=== PATIENT | female | born 1980 ===

== ENCOUNTER 2017-03-12 19:00 | Emergency (ER) | payer OTHER ==
[2017-03-12 19:10] VITALS: BMI 30.1
[2017-03-12 19:13] VITALS: BP 111/76; PULSE 84; TEMP 97.8
--- NOTE | 2017-03-12 19:21 | ED PDOC ---
Arrival/HPI - General Chief Complaint: Lower Extremity Problem/Injury Time Seen by Provider: 03/12/17 19:15 Historian: Patient - History of Present Illness Narrative History of Present Illness (Text): 03/12/17 19:18 37YO female present with complaint of right knee pain x 2months. States she has been taking Aleve without relieve. Did not see any Doctor. Denies any trauma. Denies calf pain, SOB, chest pain, OCP use, recent travel, diaphoresis, any other complaint. Past Medical History - Provider Review Nursing Documentation Reviewed: Yes - Infectious Disease Hx of Infectious Diseases: None - Genitourinary/Gynecological Hx Genitourinary Disorders: Yes Other/Comment: PMDD- hyestrectomy performed - Psychiatric Hx Substance Use: No - Surgical History Hx Hysterectomy: Yes (oct 2016) Other/Comment: PMDD - Anesthesia Hx Anesthesia: Yes Hx Anesthesia Reactions: No Family/Social History - Physician Review Nursing Documentation Reviewed: Yes Family/Social History: Unknown Family HX Smoking Status: Never Smoked Hx Alcohol Use: No Hx Substance Use: No Allergies/Home Meds Allergies/Adverse Reactions: Allergies No Known Allergies Allergy (Verified 03/12/17 19:10) Review of Systems - Physician Review All systems were reviewed & negative as marked: Yes - Review of Systems Constitutional: Normal Eyes: Normal ENT: Normal Respiratory: Normal Cardiovascular: Normal Gastrointestinal: Normal Genitourinary Female: Normal Musculoskeletal: Arthralgias (Right knee) Skin: Normal Neurological: Normal Endocrine: Normal Hemo/Lymphatic: Normal Psychiatric: Normal Physical Exam Vital Signs Reviewed: Yes Vital Signs Temp Pulse Resp BP Pulse Ox 03/12/17 19:12 97.8 F 84 19 111/76 99 Temperature: Afebrile Blood Pressure: Normal Pulse: Regular Respiratory Rate: Normal Appearance: Positive for: Well-Appearing, Non-Toxic, Comfortable Pain Distress: None Mental Status: Positive for: Alert and Oriented X 3 - Systems Exam Head: Present: Atraumatic, Normocephalic Pupils: Present: PERRL Extroacular Muscles: Present: EOMI Conjunctiva: Present: Normal Mouth: Present: Moist Mucous Membranes Neck: Present: Normal Range of Motion Respiratory/Chest: Present: Clear to Auscultation, Good Air Exchange. No: Respiratory Distress, Accessory Muscle Use Cardiovascular: Present: Regular Rate and Rhythm, Normal S1, S2. No: Murmurs Abdomen: Present: Normal Bowel Sounds. No: Tenderness, Distention, Peritoneal Signs Back: Present: Normal Inspection Upper Extremity: Present: Normal Inspection. No: Cyanosis, Edema Lower Extremity: Present: NORMAL PULSES, Tenderness (Over posterior, medial and lateral right knee). No: Edema, CALF TENDERNESS, Cyanosis, Swelling, Erythema, Deformity Neurological: Present: GCS=15, CN II-XII Intact, Speech Normal Skin: Present: Warm, Dry, Normal Color. No: Rashes Psychiatric: Present: Alert, Oriented x 3, Normal Insight, Normal Concentration Medical Decision Making ED Course and Treatment: 03/12/17 19:55 Per US tech Doppler is negative for DVT Right knee xray - No acute finding Result was DW the patient. She was referred to ortho. TRT ED for any new or worsening symptoms - RAD Interpretation Radiology Orders: 03/12/17 19:17 KNEE W PATELLA RIGHT 3 VIEW [RAD] Stat 03/12/17 19:20 DUPLEX LOWER EXTRM VEIN RIGHT [US] Stat - Medication Orders Current Medication Orders: Discontinued Medications Ketorolac Tromethamine (Toradol) 60 mg IM STAT STA Stop: 03/12/17 19:18 Last Admin: 03/12/17 19:25 Dose: 60 mg Disposition/Present on Arrival - Present on Arrival Any Indicators Present on Arrival: No History of DVT/PE: No History of Uncontrolled Diabetes: No Urinary Catheter: No History of Decub. Ulcer: No History Surgical Site Infection Following: None - Disposition Have Diagnosis and Disposition been Completed?: Yes Diagnosis: Knee pain Disposition: HOME/ ROUTINE Disposition Time: 20:00 Patient Plan: Discharge Condition: STABLE Discharge Instructions (ExitCare): Knee Pain (ED) Additional Instructions: Follow up with your doctor Return to ED for any new or worsening symptoms Prescriptions: Naproxen [Naprosyn] 500 mg PO BID #20 tablet Referrals: Nathaly Nicolas MD [Staff Provider] - Follow up with primary
[2017-03-12 20:14] VITALS: RESP 18; O2SAT 98
--- NOTE | 2017-03-13 07:53 | RAD ---
PROCEDURE: Right Knee Radiographs. HISTORY: KNEE PAIN COMPARISON: None. FINDINGS: BONES: Normal. No fracture. JOINTS: Normal. No osteoarthritis. JOINT EFFUSION: None. OTHER FINDINGS: Mild lateral patellar orientation on the sunrise view IMPRESSION: No fracture dislocation. Lateral patellar orientation
--- NOTE | 2017-03-13 17:47 | US ---
PROCEDURE: Right lower extremity venous US HISTORY: Leg pain and swelling. Evaluate for DVT. PHYSICIAN(S): Sukhjinder Abdullahi M.D. TECHNIQUE: Duplex sonography and color-flow Doppler with graded compression were used to evaluate the deep venous system of the right lower extremity. FINDINGS: The visualized deep venous system of the right lower extremity is sonographically normal and compressible. Normal waveforms and augmentation are seen. There is no sonographic evidence for deep venous thrombosis in the visualized segments of the right lower extremity. IMPRESSION: 1. No sonographic evidence for deep venous thrombosis in the visualized segments of the right lower extremity.
== END 2017-03-12 20:13 | disposition home or self-care (01) ==
LOC: ED 19:00 → MERGE 19:00 → ED 20:13
DX: M25.561 Pain in right knee (principal)
CPT/HCPCS: 73562; 93971; 96372; 99283; J1885

== ENCOUNTER 2017-03-23 12:38 | Emergency (ER) | payer OTHER ==
[2017-03-23 12:39] VITALS: BMI 30.1
[2017-03-23 13:01] VITALS: RESP 18
[2017-03-23] MEDS ORDERED: Aspirin 325 mg EC Tablets PO STA (13:10)
[2017-03-23 13:24] LABS: ADD MANUAL DIFF? NO
--- NOTE | 2017-03-23 13:28 | ED PDOC ---
Arrival/HPI - General Chief Complaint: Lower Extremity Problem/Injury Time Seen by Provider: 03/23/17 12:51 - History of Present Illness Narrative History of Present Illness (Text): 03/23/17 13:20 Natalia Corrales is a 37 year old female whose past medical history includes a Hysterectomy, who presents to the emergency department with several weeks, possibly several months of bilateral lower extremity swelling and pain (L>R). Patient was recently in the Emergency department 10 days ago with negative Dopplers. Patient also reports 3 days of steady chest pain which she describes as sharp, stabbing, and sometimes achy along with shortness of breath. Patient also notes two days of generalized body numbness specifically of the bilateral LE and UE. Patient denies any weakness, no difficulties with ADLS, no dizziness , no nausea/vomiting/diarrhea, lightheadedness no trauma. Patient is a non- smoker, non-drug user, but an occasional drinker. PMD: None reported. Time/Duration: > week Symptom Onset: Gradual Symptom Course: Unchanged Activities at Onset: Light Context: Home Associated Symptoms (Text): 03/23/17 13:49 Patient has several different complaints. She complains of a several week to several month history of bilateral lower extremity swelling and pain, left greater than right. She had negative Doppler in the emergency Department 10 days ago. She also complains of approximately 3 days' history of steady chest pain and shortness of breath. She has a 2 day history of numbness of her bilateral upper and bilateral lower extremities, left worse than right. No weakness. No head trauma. No dizziness. No lightheadedness. No abdominal pain nausea or vomiting. She does not appear to be in any distress. Past Medical History - Provider Review Nursing Documentation Reviewed: Yes - Infectious Disease Hx of Infectious Diseases: None - Genitourinary/Gynecological Hx Genitourinary Disorders: Yes Other/Comment: PMDD- hyestrectomy performed - Psychiatric Hx Substance Use: No - Surgical History Hx Hysterectomy: Yes (oct 2016) Other/Comment: PMDD - Anesthesia Hx Anesthesia: Yes Hx Anesthesia Reactions: No Family/Social History - Physician Review Nursing Documentation Reviewed: Yes Family/Social History: No Known Family HX Smoking Status: Never Smoked Hx Alcohol Use: No Hx Substance Use: No Allergies/Home Meds Allergies/Adverse Reactions: Allergies No Known Allergies Allergy (Verified 03/23/17 12:56) Home Medications: Home Meds Medication Instructions Recorded Confirmed No Known Home Med 03/23/17 03/23/17 Review of Systems - Physician Review All systems were reviewed & negative as marked: Yes - Review of Systems Constitutional: Normal. absent: Fatigue, Fevers Respiratory: SOB. absent: Cough, Sputum Cardiovascular: Chest Pain. absent: Palpitations, Syncope Gastrointestinal: Normal. absent: Abdominal Pain, Diarrhea, Nausea, Vomiting Genitourinary Female: Normal. absent: Dysuria, Frequency, Hematuria Musculoskeletal: Other (Bilateral Extremity Swellling and Pain (L>R); LLE/LUE numbness) Neurological: absent: Headache, Dizziness, Focal Weakness, Gait Changes, Speech Changes, Facial Droop, Disequilibrium, Seizure Physical Exam Vital Signs Reviewed: Yes Vital Signs Temp Pulse Resp BP Pulse Ox 03/23/17 14:44 98.6 F 78 18 132/78 99 03/23/17 13:00 98.7 F 87 18 113/80 98 Temperature: Afebrile Blood Pressure: Normal Pulse: Regular Respiratory Rate: Normal Appearance: Positive for: Well-Appearing, Non-Toxic, Comfortable Pain Distress: None Mental Status: Positive for: Alert and Oriented X 3 - Systems Exam Head: Present: Atraumatic, Normocephalic Pupils: Present: PERRL Extroacular Muscles: Present: EOMI Conjunctiva: Present: Normal Ears: Present: NORMAL TM, Normal Canal. No: Erythema Mouth: Present: Moist Mucous Membranes Pharnyx: No: ERYTHEMA, EXUDATE, TONSILS ENLARGED Neck: Present: Normal Range of Motion. No: MIDLINE TENDERNESS, Paraspinal Tenderness Respiratory/Chest: Present: Clear to Auscultation, Good Air Exchange. No: Respiratory Distress, Accessory Muscle Use, Tender to Palpation Cardiovascular: Present: Regular Rate and Rhythm, Normal S1, S2. No: Murmurs Abdomen: Present: Normal Bowel Sounds. No: Tenderness, Distention, Peritoneal Signs, Rebound, Guarding Back: Present: Normal Inspection Upper Extremity: Present: Normal Inspection. No: Cyanosis, Edema Lower Extremity: Present: Normal Inspection, Other (There is no lower extremity edema). No: Edema Neurological: Present: GCS=15, CN II-XII Intact, Speech Normal, Motor Func Grossly Intact, Normal Sensory Function, Normal Cerebellar Funct, Norm Deep Tendon Reflexes, Gait Normal, Memory Normal Skin: Present: Warm, Dry, Normal Color. No: Rashes Psychiatric: Present: Alert, Oriented x 3, Normal Insight, Normal Concentration Medical Decision Making ED Course and Treatment: 03/23/17 13:20 Impression: 37 year old female with bilateral LE swelling and pain (L>R). Patient also reports chest pain and shortness of breath. Plan: -- Head CT -- Chest X-ray -- EKG -- Labs, Urinalysis, cardiac enzymes -- Aspirin -- Reassess and disposition Prior Visits: Notes and results from previous visits were reviewed. Patient was last seen in the emergency department on 03/12/17 for right knee pain. Progress Notes: 03/23/17 13:51 EKG shows normal sinus rhythm rate approximately [address] or T-wave changes 03/23/17 14:33 Procedure: Head CT Dictator: Sukhjinder Hearn MD Impression: No intracranial mass, hemorrhage or evidence of acute infarct. Mild chronic paranasal sinusitis. - Lab Interpretations Lab Results: 03/23/17 13:23 03/23/17 13:22 Lab Results 03/23/17 13:45: Urine Opiates Screen Negative, Urine Methadone Screen Negative, Ur Barbiturates Screen Negative, Ur Phencyclidine Scrn Negative, Ur Amphetamines Screen Negative, U Benzodiazepines Scrn Negative, U Oth Cocaine Metabols Negative, U Cannabinoids Screen Negative 03/23/17 13:45: Urine Color Yellow, Urine Appearance Clear, Urine pH 7.0, Ur Specific [place] 1.020, Urine Protein Negative, Urine Glucose (UA) Negative, Urine Ketones Negative, Urine Blood Negative, Urine Nitrate Negative, Urine Bilirubin Negative, Urine Urobilinogen 0.2, Ur Leukocyte Esterase Negative 03/23/17 13:23: PT 10.7, INR 0.99, APTT 26.3, D-Dimer, Quantitative 0.46 03/23/17 13:23: WBC 6.5, RBC 3.95, Hgb 11.5 L, Hct 33.4 L, MCV 84.6, MCH 29.1, MCHC 34.4, RDW 13.6, Plt Count 285, MPV 9.7, Gran % 50.2, Lymph % (Auto) 41.5 H , [place] % (Auto) 5.3, Eos % (Auto) 2.5, Baso % (Auto) 0.5, Gran # 3.25, Lymph # 2.7, [place] # 0.3, Eos # 0.2, Baso # 0.03 03/23/17 13:22: Sodium 142, Potassium 3.6, Chloride 106, Carbon Dioxide 28, Anion Gap 12, BUN 12, Creatinine 0.5, Est GFR ( Amer) > 60, Est GFR (Non- Af Amer) > 60, Random Glucose 84, Calcium 9.2, Total Bilirubin 0.4, AST 31, ALT 50, Alkaline Phosphatase 59, Lactate Dehydrogenase 488, Total Creatine Kinase 74 , Troponin I < 0.01, NT-Pro-B Natriuret Pep 136, Total Protein 7.1, Albumin 4.0 , Globulin 3.1, Albumin/Globulin Ratio 1.3 I have reviewed the lab results: Yes - RAD Interpretation Narrative RAD Interpretations (Text): 03/23/17 14:33 Procedure: Head CT Dictator: Sukhjinder Hearn MD FINDINGS: HEMORRHAGE: No intracranial hemorrhage. BRAIN: No mass effect or edema. No atrophy or chronic microvascular ischemic changes. VENTRICLES: Unremarkable. No hydrocephalus. CALVARIUM: Unremarkable. PARANASAL SINUSES: Mild chronic ethmoid and right maxillary sinusitis. MASTOID AIR CELLS: Unremarkable as visualized. No inflammatory changes. OTHER FINDINGS: None. Impression: No intracranial mass, hemorrhage or evidence of acute infarct. Mild chronic paranasal sinusitis. Radiology Orders: 03/23/17 13:10 CHEST TWO VIEWS (PA/LAT) [RAD] Stat 03/23/17 13:11 HEAD W/O CONTRAST [CT] Stat Chest 2 view shows no infiltrate effusion cardiomegaly or pneumothorax Counselor Supervisor: ED Physician - Medication Orders Current Medication Orders: Discontinued Medications Aspirin (Ecotrin) 325 mg PO STAT STA Stop: 03/23/17 13:11 Last Admin: 03/23/17 13:25 Dose: 325 mg - Juaniibe Statement The provider has reviewed the documentation as recorded by the Naresh Mcelroy Provider Attestation: All medical record entries made by the Naresh were at my direction and personally dictated by me. I have reviewed the chart and agree that the record accurately reflects my personal performance of the history, physical exam, medical decision making, and the department course for this patient. I have also personally directed, reviewed, and agree with the discharge instructions and disposition. Disposition/Present on Arrival - Present on Arrival Any Indicators Present on Arrival: No History of DVT/PE: No History of Uncontrolled Diabetes: No Urinary Catheter: No History of Decub. Ulcer: No History Surgical Site Infection Following: None - Disposition Have Diagnosis and Disposition been Completed?: Yes Diagnosis: Chest pain, Dyspnea, Numbness, Edema Disposition: HOME/ ROUTINE Disposition Time: 14:35 Patient Plan: Discharge Condition: GOOD Discharge Instructions (ExitCare): Chest Pain (ED), Paresthesia (ED), Dyspnea ( ED) Referrals: Tiffany Chavez, [Primary Care Provider] - Follow up with primary [facility] [place] - Follow up with primary
[2017-03-23 13:29] LABS: BASO # 0.03 K/mm3 (0.0-2.0); BASO % 0.5 % (0.0-3.0); EOS # 0.2 (0.0-0.7); EOS % 2.5 % (1.5-5.0); GRAN # 3.25 (1.4-6.5); GRAN % 50.2 % (50.0-68.0); HEMATOCRIT 33.4 % (36.0-48.0); LYMPH # 2.7 (1.2-3.4); LYMPH % 41.5 % (22.0-35.0); MEAN CELL VOLUME 84.6 fL (80.0-105.0); MEAN CORPUSCULAR HEMOGLOBIN 29.1 pg (25.0-35.0); MEAN CORPUSCULAR HGB CONC 34.4 g/dl (31.0-37.0); MEAN PLATELET VOLUME 9.7 fl (7.0-11.0); MONO # 0.3 (0.1-0.6); MONO % 5.3 % (1.0-6.0); PLATELET COUNT 285 10^3/uL (120.0-450.0); RED CELL DISTRIBUTION WIDTH 13.6 % (11.5-14.5); WHITE BLOOD COUNT 6.5 10^3/ul (4.5-11.0)
[2017-03-23 13:42] LABS: INR 0.99 (0.93-1.08); PARTIAL THROMBOPLASTIN TIME 26.3 Seconds (23.7-30.8)
[2017-03-23 13:43] LABS: D DIMER 0.46 mg/L FEU (0-0.50)
[2017-03-23 13:50] LABS: ALB/GLOB RATIO 1.3 (1.1-1.8); ALKALINE PHOSPHATASE 59 U/L (38-133); ALT/SGPT 50 U/L (7-56); AST/SGOT 31 U/L (15-39); BILIRUBIN,TOTAL 0.4 mg/dL (0.2-1.3); BLOOD UREA NITROGEN 12 mg/dL (7-21); CALCIUM 9.2 mg/dL (8.4-10.5); CARBON DIOXIDE 28 mmol/L (21-33); CHLORIDE 106 mmol/L (98-107); GFR AFRICAN-AMERICAN > 60; GLUCOSE,RANDOM 84 mg/dL (70-110); POTASSIUM 3.6 mmol/L (3.6-5.0); SODIUM 142 mmol/L (132-148); TOTAL PROTEIN 7.1 g/dL (5.8-8.3)
[2017-03-23 13:57] LABS: URINE BILIRUBIN NEGATIVE (NEGATIVE); URINE BLOOD NEGATIVE (NEGATIVE); URINE GLUCOSE (UA) NEGATIVE (NEGATIVE); URINE KETONE NEGATIVE (NEGATIVE); URINE LEUKOCYTE ESTERASE NEGATIVE Leu/uL (NEGATIVE); URINE PROTEIN NEGATIVE mg/dL (<30 mg/dL); URINE UROBILINOGEN 0.2 E.U./dL (<1 E.U./dL)
[2017-03-23 14:01] LABS: URINE APPEARANCE CLEAR (CLEAR); URINE COLOR YELLOW (YELLOW)
[2017-03-23 14:02] LABS: TROPONIN I < 0.01 ng/mL
--- NOTE | 2017-03-23 14:31 | CT ---
PROCEDURE: CT HEAD WITHOUT CONTRAST. HISTORY: numbness COMPARISON: None available. TECHNIQUE: Axial computed tomography images were obtained through the head/brain without intravenous contrast. Radiation dose: Total exam DLP = 725.84 mGy-cm. This CT exam was performed using one or more of the following dose reduction techniques: Automated exposure control, adjustment of the mA and/or kV according to patient size, and/or use of iterative reconstruction technique. FINDINGS: HEMORRHAGE: No intracranial hemorrhage. BRAIN: No mass effect or edema. No atrophy or chronic microvascular ischemic changes. VENTRICLES: Unremarkable. No hydrocephalus. CALVARIUM: Unremarkable. PARANASAL SINUSES: Mild chronic ethmoid and right maxillary sinusitis. MASTOID AIR CELLS: Unremarkable as visualized. No inflammatory changes. OTHER FINDINGS: None. IMPRESSION: No intracranial mass, hemorrhage or evidence of acute infarct. Mild chronic paranasal sinusitis.
[2017-03-23 14:45] VITALS: BP 132/78; PULSE 78; TEMP 98.6; O2SAT 99
--- NOTE | 2017-03-23 16:16 | CARD ---
APPROVED REPORT EKG Measurement Heart [id number] <Conclusion> Normal sinus rhythm Possible Left atrial enlargement Borderline ECG
--- NOTE | 2017-03-23 17:49 | RAD ---
HISTORY: cp COMPARISON: No prior. TECHNIQUE: Chest PA and lateral FINDINGS: LUNGS: No active pulmonary disease. PLEURA: No significant pleural effusion identified. No pneumothorax apparent. CARDIOVASCULAR: Normal. OSSEOUS STRUCTURES: No significant abnormalities. VISUALIZED UPPER ABDOMEN: Normal. OTHER FINDINGS: None. IMPRESSION: No active disease.
== END 2017-03-23 14:45 | disposition home or self-care (01) ==
LOC: ED 12:38
DX: R20.9 Unspecified disturbances of skin sensation (principal); R07.9 Chest pain, unspecified; R06.00 Dyspnea, unspecified; R60.9 Edema, unspecified

== ENCOUNTER 2017-05-08 13:46 | Emergency (ER) | payer OTHER ==
[2017-05-08 13:46] VITALS: BMI 30.1
[2017-05-08 14:05] VITALS: TEMP 98.7
[2017-05-08 15:15] VITALS: RESP 18; O2SAT 98
--- NOTE | 2017-05-08 15:21 | RAD ---
PROCEDURE: Left Foot Radiographs. HISTORY: r/o fx COMPARISON: None. FINDINGS: BONES: Normal. No fracture. JOINTS: First meta tarsal phalangeal joint space narrowing consistent with minimal degenerative changes is suggested. SOFT TISSUES: Normal. OTHER FINDINGS: None. IMPRESSION: No fracture. Other findings as above
--- NOTE | 2017-05-08 17:26 | ED PDOC ---
Arrival/HPI - General Chief Complaint: Lower Extremity Problem/Injury Time Seen by Provider: 05/08/17 14:09 Historian: Patient - History of Present Illness Narrative History of Present Illness (Text): 05/08/17 14:09 A 37 year old female presents to the emergency department complaining of left foot pain for approximately 1 week. Patient reports her pain has worsened over the past 2 days. Patient ambulating with a limp. Patient denies any trauma, fall , fever, chills, nausea, vomiting, diarrhea, abdominal pain, chest pain, shortness of breath, cough or any other complaints. PMD: Dr. Jannette Nolan Time/Duration: 1 week Symptom Course: Worsening (past 2 days) Quality: Other Context: Other Past Medical History - Provider Review Nursing Documentation Reviewed: Yes - Infectious Disease Hx of Infectious Diseases: None - Genitourinary/Gynecological Hx Genitourinary Disorders: Yes Other/Comment: PMDD- hyestrectomy performed - Psychiatric Hx Substance Use: No - Surgical History Hx Hysterectomy: Yes (oct 2016) Other/Comment: PMDD - Anesthesia Hx Anesthesia: Yes Hx Anesthesia Reactions: No Family/Social History - Physician Review Nursing Documentation Reviewed: Yes Family/Social History: No Known Family HX Smoking Status: Never Smoked Hx Alcohol Use: No Hx Substance Use: No Allergies/Home Meds Allergies/Adverse Reactions: Allergies No Known Allergies Allergy (Verified 05/08/17 14:05) Review of Systems - Physician Review All systems were reviewed & negative as marked: Yes - Review of Systems Constitutional: absent: Fevers, Night Sweats Respiratory: absent: SOB, Cough Cardiovascular: absent: Chest Pain Gastrointestinal: absent: Abdominal Pain, Diarrhea, Nausea, Vomiting Musculoskeletal: Other (Left foot pain) Physical Exam Vital Signs Reviewed: Yes Vital Signs Temp Pulse Resp BP Pulse Ox 05/08/17 17:10 69 18 116/69 98 05/08/17 16:25 75 18 112/68 98 05/08/17 15:15 78 18 114/75 98 05/08/17 14:02 98.7 F 81 16 112/70 97 Temperature: Afebrile Blood Pressure: Normal Pulse: Regular Respiratory Rate: Normal Appearance: Positive for: Well-Appearing, Non-Toxic, Comfortable Pain Distress: None Mental Status: Positive for: Alert and Oriented X 3 - Systems Exam Head: Present: Atraumatic, Normocephalic Pupils: Present: PERRL Extroacular Muscles: Present: EOMI Conjunctiva: Present: Normal Mouth: Present: Moist Mucous Membranes Neck: Present: Normal Range of Motion Respiratory/Chest: Present: Clear to Auscultation, Good Air Exchange. No: Respiratory Distress, Accessory Muscle Use Cardiovascular: Present: Regular Rate and Rhythm, Normal S1, S2. No: Murmurs Abdomen: Present: Normal Bowel Sounds. No: Tenderness, Distention, Peritoneal Signs Back: Present: Normal Inspection Upper Extremity: Present: Normal Inspection. No: Cyanosis, Edema Lower Extremity: Present: NORMAL PULSES, Normal ROM, Tenderness (Point tenderness to plantar medial aspect of left foot), Neurovascularly Intact. No: Edema, CALF TENDERNESS, Swelling, Erythema (/Cellulitis/Abscess), Deformity, Temperature Abnormalties Neurological: Present: GCS=15, CN II-XII Intact, Speech Normal Skin: Present: Warm, Dry, Normal Color. No: Rashes Psychiatric: Present: Alert, Oriented x 3, Normal Insight, Normal Concentration Medical Decision Making ED Course and Treatment: 05/08/17 14:09 Impression: A 37 year old female with left foot pain Plan: -- Left foot xray -- Reassess and disposition Progress Notes: Report Date : 05/08/2017 15:19:57 PROCEDURE: Left Foot Radiographs. Dictator : Orin Jordan IMPRESSION: No fracture. Other findings as above. 05/08/17 16:30 Xray negative for fracture. Patient referred to a bullet charging machine operator. Patient expresses understanding and in agreement with plan. - RAD Interpretation Radiology Orders: 05/08/17 14:31 FOOT LEFT 3 VIEWS ROUTINE [RAD] Stat - Scribe Statement The provider has reviewed the documentation as recorded by the Scribe Radha Kirkland Provider Scribe Attestation: All medical record entries made by the Scribe were at my direction and personally dictated by me. I have reviewed the chart and agree that the record accurately reflects my personal performance of the history, physical exam, medical decision making, and the department course for this patient. I have also personally directed, reviewed, and agree with the discharge instructions and disposition. Disposition/Present on Arrival - Present on Arrival Any Indicators Present on Arrival: No History of DVT/PE: No History of Uncontrolled Diabetes: No Urinary Catheter: No History of Decub. Ulcer: No History Surgical Site Infection Following: None - Disposition Have Diagnosis and Disposition been Completed?: Yes Diagnosis: Foot pain Disposition: HOME/ ROUTINE Disposition Time: 15:30 Condition: GOOD Discharge Instructions (ExitCare): Foot Sprain (ED) Additional Instructions: Thank you for letting us take care of you today. Your provider was Dr. Bahena. You were treated for foot pain. The emergency medical care you received today was directed at your acute symptoms. If you were prescribed any medication, please fill it and take as directed. It may take several days for your symptoms to resolve. Return to the Emergency Department if your symptoms worsen, do not improve, or if you have any other problems. Please contact your doctor or call one of the physicians/clinics you have been referred to that are listed on the Patient Visit Information form that is included in your discharge packet. Bring any paperwork you were given at discharge with you along with any medications you are taking to your follow up visit. Our treatment cannot replace ongoing medical care by a primary care provider (PCP) outside of the emergency department. Thank you for allowing the [facility] team to be part of your care today. Follow up with Dr. Nash, podiatry, this week for follow up. Prescriptions: traMADol [Ultram] 50 mg PO Q6 PRN #15 tab PRN Reason: Pain, Severe (8-10) Referrals: Geovani Nash DPM [Staff Provider] - Follow up with primary Jannette Nolan MD [Primary Care Provider] - Follow up with primary Forms: WORK NOTE
[2017-05-08 18:05] VITALS: BP 116/69; PULSE 69
== END 2017-05-08 17:30 | disposition home or self-care (01) ==
LOC: ED 13:46
DX: M79.672 Pain in left foot (principal)